=== PATIENT | male | born 2000 | race Caucasian/White ===

== ENCOUNTER 2024-10-10 11:57 | Emergency (ER) | payer BC, SELFPAY ==
[2024-10-10 12:23] VITALS: BP 129/76; PULSE 71; RESP 16; TEMP 36; O2SAT 99; BMI 31.6
--- NOTE | 2024-10-10 12:27 | ED_ITS ---
HPI - General Adult General Chief complaint: Skin/Abscess/Foreign Body Stated complaint: cyst Time Seen by Provider: 10/10/24 16:46 Source: patient Mode of arrival: ambulatory Limitations: no limitations History of Present Illness ED Provider: Rossi Andrews PA-C HPI narrative: Patient is a 24 year old assigned male at with a history of pilonidal abscess requiring surgical excision presenting to the emergency department today with a new pilonidal cyst. Patient states that over the last 3 days he has had drainage from a left pilonidal cyst and he is concerned it needs to be lanced and drained. Patient denies any dizziness, lightheadedness, abdominal pain, nausea, vomiting, fever, chills, blurry vision, double vision, loss of vision, chest pain, difficulty breathing, shortness of breath, back pain, night sweats, pain with urination, increased urinary frequency, increased urinary urgency, blood in his urine or stool, syncope or a near syncopal episode, recent trauma or falls, bowel incontinence, bladder incontinence, or any other complaints at this time. Onset (ago): day(s) (3) Relieving factors: none Exacerbating factors: none Associated symptoms: denies other symptoms Treatments prior to arrival: none Related Data Allergies Allergy/AdvReac Type Severity Reaction Status Date / Time No Known Allergies Allergy Verified 10/10/24 12:26 Review of Systems 2 Constitutional: Constitutional: Reports no additional constitutional complaints, Denies chills, Denies fever(s) and Denies night sweats Eyes: Eyes: Reports no additional eye complaints, Denies blurry vision, Denies change in vision, Denies diplopia, Denies eye discharge, Denies loss of vision and Denies eye pain ENT: Denies dizziness Cardiovascular: Cardiovascular: Reports no additional cardiovascular complaints, Denies chest pain, Denies lightheadedness, Denies Loss of Consciousness and Denies dyspnea Respiratory: Respiratory: Reports no additional respiratory complaints and Denies dyspnea Gastrointestinal: Gastrointestinal: Reports no additional gastrointestinal complaints, Denies abdominal pain, Denies melena, Denies hematochezia, Denies change in bowel habits and Denies change in stool character Genitourinary: Genitourinary: Reports no additional male genitourinary complaints, Denies hematuria, Denies oliguria, Denies difficulty urinating, Denies dysuria, Denies urinary frequency, Denies urinary hesitancy, Denies urinary incontinence and Denies urinary urgency Musculoskeletal: Musculoskeletal: Reports no additional musculoskeletal complaints, Denies numbness and Denies tingling Integumentary/Breasts: Comments: left pilonidal abscess vs. cyst Neurologic: Denies dizziness, Denies loss of vision, Denies numbness and Denies tingling Psychiatric: Psychiatric: Reports no additional psychiatric complaints Endocrine: Endocrine: Reports no additional endocrine complaints Hematologic/Lymphatic: Hematologic/Lymphatic: Reports no additional hematologic/lymphatic complaints Allergic/Immunologic: Allergic/Immunologic: Reports no additional allergic/immunologic complaints [facility] Past Medical History Attestation statement: The following information was validated with the patient. Source: old records reviewed and nursing notes reviewed Social History Social History Alcohol intake: current Alcohol intake frequency: a few times a week Smoked in Last 30 Days: No Use of substances other than those prescribed or required for medical reasons: No Advance Directives: No Advance Directives Information Provided: Yes Physical Exam ED Vital Signs: Vital Signs - 24 hr 10/10/24 12:23 10/10/24 17:06 Temperature 96.8 F 96.8 F Pulse Rate 71 71 Respiratory Rate 16 16 Blood Pressure 129/76 129/76 Pulse Oximetry 99 99 Oxygen Delivery Method Room Air Room Air BMI result Body Mass Index 31.6 Const General: cooperative, no acute distress, alert and awake Nutritional Appearance: well nourished Orientation/consciousness: patient oriented x3 HENMT Head: Yes normal to inspection and Yes atraumatic Ears: hearing grossly normal bilaterally and external ears normal General nose exam: Normal external nose present, no nasal discharge noted and no epistaxis Face and sinus: Yes normal facial exam, No abrasion and No laceration Mouth: Normal oral and palatal mucosa present, no drooling and no muffled voice Eyes General: appearance normal, both eyes and all related structures Periorbital: periorbital findings normal Eyelids: Yes eyelids normal Conjunctivae: conjunctivae normal Pupils: Equal, round and reactive pupils present EOM: EOMs intact bilaterally Neck Neck: Yes normal visual inspection, Yes full ROM and Yes no lymphadenopathy Resp Effort & Inspection: normal respiratory effort and able to speak in complete sentences Back/Spine/Pelvis Back/spine/pelvis image: 2 1. Small pilonidal cyst to the upper left gluteal cleft with no fluctuance and no active drainage but has a scabbed head Neuro General: patient oriented x3, moves all extremities and CN's II-XI intact bilaterally Cranial nerves: Yes Equal, round and reactive pupils present Cognition (Neuro): normal cognition Extrem General: Yes normal to inspection, Yes full ROM and Yes capillary refill normal Psych Appearance: grossly normal Mental Status: mental status grossly normal Affect: normal affect Attitude: cooperative Thought process: Normal thought process present Thought content: Normal thought content present Insight: Good insight present (Psych) Course Course Course Narrative: 10/10/24 1227 CHARY Mayo This is a Rapid Medical Examination (RME) performed by Demian Pope PA-C in triage. Full HPI, ROS, assessment and treatment plan per primary provider in the Main ED. Hx: 24 yo M hx of pilonidal cysts here for eval of draining cyst to upper buttock. reports increased pain/ drainage. no fever/chills. PE/vitals: Area not visualized in triage. Plan: Further eval and back Medical Decision Making Medical Decision Making MDM Narrative: Patient is a 24 year old assigned male at with a history of pilonidal abscess requiring surgical excision presenting to the emergency department today with a new pilonidal cyst. Patient's physical exam was as noted in the physical exam portion of this note. Patient's cyst does not need drained at this time and it appears it has already drained itself appropriately. No surrounding erythema or evidence of infection. I explained my physical exam findings to the patient. I answered all questions asked by the patient. I stressed the importance of the patient taking his medication as directed (either prescribed or as the over the counter packaging recommends). I stressed the importance of the patient following up with his primary care provider. I stressed the importance of the patient returning to the emergency department immediately if his symptoms were to worsen or if he were to develop any dizziness, shortness of breath, difficulty breathing, chest pain, blurry vision, loss of vision, nausea, vomiting, abdominal pain, fever, chills, back pain, or any other complaints. Patient verbalized agreement and understanding with this treatment plan and discharge. Differential Diagnosis Differential Diagnoses: The differential diagnosis associated with the presentation includes Pilonidal cyst Admission/Observation Consideration of admission/observation: Escalation of care including admission/observation considered Patient would have been admitted to the hospital had his clinical presentation warranted hospital admission. Discharge Plan Discharge Clinical Impression: Pilonidal cyst Patient Disposition: Home, Self-Care Instructions: Pilonidal Cyst (ED) Additional Instructions: You have a very small cyst to the left gluteal cleft that does not need drainage at this time. Apply warm compresses to the area and allow it to come to a head and open itself. Follow up with a primary care provider. Return to the emergency department immediately if your symptoms worsen or if you develop any numbness, tingling, dizziness, shortness of breath, difficulty breathing, chest pain, blurry vision, loss of vision, nausea, vomiting, abdominal pain, fever, chills, back pain, or any other complaints. L If you do not have a primary care provider - call any of the below numbers to establish and follow up with a primary care provider. [facility] Primary Care ([place]) [phone] [place] [address], [address] [facility] Primary Care (2 [facility]) [phone] [place] [address], [address] [facility], [address] [facility] Primary Care ([address] [place]) [phone] [place] [address], [address] [facility], [address] [facility] ([place]) [phone] [place] [address] 2 [facility], [address] [facility] Family Medicine [phone] [place] [address], [address] Please see the information below about our Patient Portal. If you are not yet enrolled in the [facility] Patient Portal, you will receive an enrollment email invitation following your visit to any [facility] setting. You may also self-enroll in the Patient Portal by visiting our website: [email or web address] The following information is required to access the Patient Portal: - Your [facility] Medical Record Number - Your personal home email address (must match what is in your electronic medical record, Registration staff can assist with this) - Name - Date of Capabilities of the Patient Portal: - Message some providers - View upcoming appointments - Access your health summary, medical history, and visit history - View current conditions and allergies - View procedure and lab results - View your medications, including guidelines, side effects, and precautions - Complete pre-appointment questionnaires requested by your provider - Ready summary reports of your office visits and procedures To access the Patient Portal Mobile [employer], follow these directions: - Search Played in the [employer] Store or [employer] Store - Download the Dawna - Search for [facility] - Enter your login/password Interventions: ED Discharge Assessment Last Done: 10/10/24 17:06 Discharge Date/Time: 10/10/24 17:07 Print Language: Afghan
[2024-10-10 17:06] VITALS: BP 129/76; PULSE 71; RESP 16; TEMP 36; O2SAT 99
--- OUTSIDE RECORDS SUMMARY | 2024-10-10 17:08 | XMS_ITS | Clinical Summary ---
Author Organization [facility] Address [address] [place] [address] Care Team Providers Care [employer] Name Role Phone Douglas Broderick MD Primary Care Provider [phone] Allergies No known active allergies Medications Alclometasone Dipropionate 0.05 % CreamIndications: Atopic dermatitis and related condition apply to skin twice a day. For eyelids 15 g 2 5 Active Ciclopirox Olamine 0.77 % CreamIndications: Intertrigo apply to skin twice a day. For belly button 90 g 1 5 Active Desonide 0.05 % Cream apply to skin twice a day. 60 g 1 5 Active Active Problems Problem Noted Date Diagnosed Date Epistaxis 03/08/2019 Overview (03/08/2019): Right nostril. Gastroesophageal reflux disease with esophagitis 03/08/2019 Overview (04/04/2019): Gag reflux since July 2018. EGD showed esophagitis. On protonix. IBS (irritable bowel syndrome) 03/08/2019 Overview (03/08/2019): Diarrhea, better now. Colonoscopy done in 2018. Encounters Date Type Department Care Team Description 09/28/2024 Orders Only [facility] [address] [place] [address] Richard Najera, PA Atopic dermatitis and related condition (Primary Dx) 09/28/2024 Telephone [facility] [address] [place] [address] Richard Najera PA Medication (medication) 09/27/2024 Telephone [facility] [address] [place] [id number] Richard Najera PA Other-Pharmacy from Last 3 Months Immunizations Immunization Administration Dates Next Due Acthib 03/01/2002,2001,2001 Dtap (Infanrix) 11/27/2006, 2,2001,2001 Gardasil (HPV) 11/25/2013,02/07/2013,11/26/2012 Hepatitis A Ped/Adol 09/19/2016,11/28/2014 Hepatitis B Ped/adol 08/31/2002,05/11/2002,03/01 IPV (Inj Polio) 11/27/2006, 3,2001,2001 Influenza 12/16/2017, 3,12/05/2011,2010,12/24/2009,07/25/2009,07/25/2009,1 05/20/2008,01/05/2004 MMR 11/27/2006,01/10/2003 Menactra 10/12/2017,11/26/2012 Prevnar - PCV7 01/10/2003, 2,2001,2001 TETANUS/DIPTHERIA AND ACELLU LAR PERTUSSIS (>7YR) 09/24/2012,01/10/2003 Varicella (Varivax) 08/31/2002 Family History Medical History Relation Comments Gout Father Heart Father A. Fib. Hypertension Father No family history of skin cancer Immediate Famil y Diabetes Maternal Grandfather Hypertension Maternal Grandfather Breast Cancer Maternal Grandmother Hypertension Maternal Grandmother Other Mother Mediterranean fe gemini, mitochondria disorder Heart Disease Paternal Grandfather Relation Status Comments Father Immediate Family Maternal Grandfather Maternal Grandmother Mother Paternal Grandfather Social History Tobacco Use Types Packs/Day Years Used Date Smoking Tobacco: Every Day Cigarettes Passive Smoke Exposure: Current Smokeless Tobacco: Never Alcohol Use Standard Drinks/Week Comments Never 0 (1 standard drink = 0.6 oz pur e alcohol) AUDIT-C Answer Date Recorded Frequency of Alcohol Consumption Never 03/08/2019 Average Number of Drinks Not on file 12/10/2 019 Frequency of Binge Drinking Not on file 02/27 PHQ-2 Answer Date Recorded PHQ-2 Score 0 04/05/2024 Sex and Gender Information Value Date Recorded Sex Assigned at Not on file Legal Sex Male 7:09 PM EDT Gender Identity Not on file Sexual Orientation Not on file Last Filed Vital Signs Vital Sign Reading Time Taken Comments Blood Pressure 129/72 05/12/2019 8:39 AM EST Pulse 88 05/12/2019 8:39 AM EST Temperature 36.3 C (97.3 F) 04/05/2024 8:46 AM EST Respiratory Rate 14 04/05/2024 8:46 AM EST Oxygen Saturation 98% 05/12/2019 8:39 AM EST Inhaled Oxygen Concentration - - Weight 93 kg (205 lb) 04/05/2024 8:46 AM EST Height 177.8 cm (5' 10 ) 04/05/2024 8:46 AM EST Body Mass Index 29.41 04/05/2024 8:46 AM EST Plan of Treatment Upcoming Encounters Date Type Department Care Team (Late st Contact Info) Description 10/25/2024 11:00 AM EDT Office Visit [facility] 2ND FLOOR [address] [place] [address] Randy Fernandez MD [address] [place] [address] 02/07/2025 2:45 PM EST Office Visit [facility] [address]RD [address] [place] [address] Douglas Broderick MD [address] [place] [address] Health Maintenance Due Date Last Done Comments [facility] Required Hepa titis C Screening 2013 [facility] PNEUMOCOCCAL VACCINE 0-4 9 (1 of 2 - PCV) 2020 01/10/2003, 03/01/2002, 2001, Additional history exists [facility] TDAP IMMUNIZATION (7 - T d or Tdap) 09/24/2022 09/24/2012, 11/27/2006, 01/10/2003, Additional history exists COVID- Vaccine (2 - season) 2023 03/28/2021 [facility] FLU VACCINE (#1) 11/28/2024 12/16/2017, 05/05/2017, 02/07/2013, Additional history exists [facility] HEPATITIS B IMMUNIZATION Completed 06/2002, 05/11/2002, 03/01/2002 Insurance [id number] [facility] Address: [address] Care Teams [employer] Relationship Specialty Start Date End Date Douglas Broderick MD [address] [place] [address] PCP - General Family Medicine 10/06/24
== END 2024-10-10 17:07 | disposition home or self-care (01) ==
PROVIDERS: Emergency Provider Emergency Medicine
DX: L05.91 Pilonidal cyst without abscess (principal)
CPT/HCPCS: 99282; 99284